=== PATIENT | female | born 1950 | race Caucasian/White ===

== ENCOUNTER → 2017-06-28 | Outpatient (CLI) | payer MEDICARE ==
[~2017-06-28] MED LIST: LEVO.125 PO; RALO60 PO; ROSU10 PO; SERT-132 PO
[2017-06-28 08:34] LABS: HEMATOCRIT 38.1 % (35.0-46.0); MEAN CELL VOLUME 94.2 FL (80.0-100.0); MEAN CORPUSCULAR HEMOGLOBIN 32.1 PG (27.0-34.0); PLATELET COUNT 236 TH/MM3 (150-450); RED BLOOD COUNT 4.05 MIL/MM3 (4.00-5.30); RED CELL DISTRIBUTION WIDTH 13.1 % (11.6-17.2); REVIEW FLAG FINAL; WHITE BLOOD COUNT 5.6 TH/MM3 (4.0-11.0)
[2017-06-28 08:40] LABS: APTT (PATIENT) 23.2 SEC (24.3-30.1); INTERNATIONAL NORMALIZED RATIO 1.1 RATIO; PROTHROMBIN TIME - PATIENT 10.8 SEC (9.8-11.6)
[2017-06-28 09:02] LABS: BICARBONATE 30.2 MEQ/L (21.0-32.0); POTASSIUM 4.4 MEQ/L (3.5-5.1)
[2017-06-28 09:42] LABS: BLOOD, URINE NEG (NEG); COMMENT (UR) CULT NOT INDICATED; CULTURE IF INDICATED CULT NOT INDICATED; GLUCOSE,URINE NEG (NEG); KETONE, URINE NEG (NEG); MUCUS URINE FEW /lpf (OCC); NITRITE,URINE NEG (NEG); PH, URINE 6.5 (5.0-8.5); SQUAMOUS EPITHELIAL CELL URINE 1 /hpf (0-5); URINE COLOR YELLOW (YELLW/STRAW)
--- NOTE | 2017-06-29 09:31 | EKG ---
Date Performed: 06/28/2017 Time Performed: 08:38:52 PTAGE: 66 years EKG: Sinus rhythm Low QRS voltages in precordial leads Borderline ECG NO PREVIOUS TRACING DOCTOR: Kirstie Doyle Interpretating Date/Time 06/29/2017 09:30:08
== END ==
LOC: CPRE 08:07
PROVIDERS: ATTEND Orthopaedic Surgery
DX: Z01.810 Encounter for preprocedural cardiovascular examination (principal); Z01.812 Encounter for preprocedural laboratory examination; M17.12 Unilateral primary osteoarthritis, left knee; M21.162 Varus deformity, not elsewhere classified, left knee; I10 Essential (primary) hypertension; M79.609 Pain in unspecified limb; R94.31 Abnormal electrocardiogram [ECG] [EKG]
CPT/HCPCS: 36415; 80048; 81001; 85027; 85610; 85730; 93005

== ENCOUNTER 2017-07-16 07:41 | Inpatient (IN) | payer MEDICARE ==
[~2017-07-16] VITALS: Ht 165.1 cm; Wt 78.4 kg
[2017-07-16] MEDS ORDERED: CHLORHEXIDINE GLUCONATE 2 % 1 PACK (2 CLOTHS) TOPICAL PRN (08:00)
[2017-07-16] MEDS: LACTATED RINGER'S 1000 ML IV PRN ×2 (08:00→10:00)
[2017-07-16] MEDS ORDERED: SODIUM CHLORID 0.9% 500 ML IV PRN (08:00)
[2017-07-16] MEDS ORDERED: METOPROLOL TARTRATE 25 MG TAB PO PRN (08:00)
[2017-07-16] MEDS ORDERED: POVIDONE IODINE 5% (ANTISEPSIS KIT) 4 APPLICATIONS EACH NARE PRN (08:00)
[2017-07-16] MEDS ORDERED: ceFAZolin 2 GM PREMIX 50 ML IV SCH (08:15)
[2017-07-16] MEDS ORDERED: CHLORHEXIDINE GLUCONATE 4% SOLN 120 ML BTL TOPICAL SCH (08:15)
[2017-07-16] MEDS ORDERED: EXPAREL PERI-ARTICULAR INJECTION (TOTAL VOL. 100 ML) P-ARTICULR SCH ×2 (10:00)
[2017-07-16] MEDS ORDERED: TRANEXAMIC ACID INJ 781 MG in SODIUM CHLORIDE 0.9% INJ 100 ML IV SCH ×2 (10:00→13:00)
[2017-07-16] MEDS ORDERED: TRANEXAMIC ACID INJ 0 MG in SODIUM CHLORIDE 0.9% INJ 100 ML IV SCH (10:00)
[2017-07-16] MEDS ORDERED: MAGNESIUM HYDROXIDE SUSP 30 ML CUP PO PRN (10:00)
--- NOTE | 2017-07-16 10:06 | HHI.FF ---
Face to Face Verification Diagnosis: (1) Status post total left knee replacement Physical Therapy Gait training Knee: Total knee, Protocol: Left, Gait training, Full weight bearing Left LE Weight Bearing: WB as tolerated Left LE Range of Motion: Active ROM (active, passive, and active assisted range of motion. Range of motion goal is 0 extension to 135 flexion.) Nursing Nursing: Dressing changes (to start on postop day 7) Dressing Changes: Daily dressing change, Coverderm/Primapore Additional Instructions Remove Steri-Strips on postop day 14. I have seen patient Karey Reyes on 07/16/17. My clinical findings support the need for the requested home health care services because: Ltd mobility - disease progression Limited ability to care for self High risk of falls I certify that my clinical findings support that this patient is homebound because: Post-op weakness Unsteady gait/balance Unsafe to leave home unassisted Phillip Marrero MD (Charles) Jul 16, 2017 10:06
[2017-07-16] MEDS ORDERED: ECASA81 PO (10:07)
[2017-07-16] MEDS ORDERED: GENTAMICIN SULFATE 80 MG/2 ML VIAL ONE (10:13)
[2017-07-16] MEDS ORDERED: ACETAMINOPHEN/HYDROcodone 325 MG/7.5 MG TAB PO PRN (10:15)
[2017-07-16] MEDS ORDERED: MORPHINE SULFATE 2 MG/ML INJ IV PUSH PRN (10:15)
[2017-07-16] MEDS ORDERED: ONDANSETRON HCL 4 MG/2 ML VIAL IVP PRN (10:15)
[2017-07-16] MEDS ORDERED: FAMOTIDINE 20 MG/2 ML VIAL ONE (10:17)
[2017-07-16] MEDS ORDERED: ACETAMINOPHEN 1000 MG/100 ML 100 ML IV ONE (10:17)
[2017-07-16] MEDS ORDERED: MIDAZOLAM HCL 2 MG/2 ML VIAL ONE (10:17)
[2017-07-16] MEDS ORDERED: BUPIVACAINE HCL PF 0.5% 30 ML VIAL ONE (10:27)
[2017-07-16] MEDS ORDERED: Post-op Orders (for Pharmacy) XX ONE (12:00)
[2017-07-16] MEDS: KETOROLAC TROMETHAMINE 30 MG/ML (IVP) VIAL IVP SCH ×3 (12:00→23:13)
--- NOTE | 2017-07-16 13:13 | PD.OP ---
Operative Report Date of Surgery: Jul 16, 2017 Preoperative Diagnosis: (1) Primary osteoarthritis of left knee Postoperative Diagnosis: (1) Primary osteoarthritis of left knee Procedure: Left total knee arthroplasty with Maggie Triathlon prosthesis (uncemented) Anesthesia: Spinal plus adductor canal block plus local with bupivacaine liposomal Surgeon: Aiden Marrero M.D. Accounts Receivable Collector(s): Cassy Hicks RN Operation and Findings: Indications and Findings: This 66-year-old woman has had left knee pain secondary to osteoarthritis over extended period of time which has been progressively worsening. Treatment is documented in the preoperative history and physical examination. Physical findings show degenerative varum with medial laxity, medial osteophytes and tenderness on motion. Radiographic findings showed loss of articular cartilage to bone on bone with medial eburnation and osteophytes. Operative findings showed severe osteoarthritis and [id number] in the medial compartment with subchondral sclerosis, large osteophytes and patellofemoral arthrosis with loss of articular cartilage and delamination of articular cartilage. The lateral compartment had degeneration as well. There was a small cyst or bursa on the anterior aspect of the patella that did not appear to be inflamed, had clear, colorless fluid and was approximately 10 mm in diameter. The prosthesis used was a Schriever Triathlon prosthesis. The femur was a size 4 cruciate retaining uncemented. The tibial baseplate was a size 4 Tritanium with a 9 mm cruciate retaining X3 polyethylene spacer. The patella was a size 35 mm asymmetric Tritanium backed. The patient was brought to the clean-air operating suite. A spinal anesthetic was administered as well as a regional anesthetic by abductor canal block. The position was supine with a small bolster under the hip on the operative side. A pneumatic tourniquet was applied to the upper thigh. The lower extremity was then prepped with alcohol, Hibiclens and ChloraPrep and draped in the usual manner with the knee draped free. An appropriate timeout procedure was carried out. An incision was made from about 3 fingerbreadths above the superior medial pole of patella down the tibial tubercle on the medial side. The incision was deepened through the subcutaneous tissue to the retinacular structures which were exposed medially and laterally. The above-noted cyst or bursa was identified and opened, essentially marsupializing. A medial retinacular incision was then made from the superior middle pole of patella down the tibial tubercle and up into the quadriceps tendon splitting it longitudinally and the medial one third. The patella was reflected. The infrapatellar fat pad was debulked. The anterior cruciate ligament was excised. Medial and lateral meniscectomies were initiated. Fenestrations were made in the distal femur and proximal tibia for intramedullary referencing guides. The distal femoral cutting guide and jig were then assembled for a 5, 8 mm cut. When this was fit position and placed cutting block was stabilized with pins. The jig was removed. The distal femoral cut was then completed with the oscillating saw. The sizing guide was then positioned in place along Whitesides line and the epicondylar axis and stabilized with pins. The femoral size was then determined as noted above. The 4-in-1 cutting block was then positioned in place. Anterior and posterior cuts were made followed by posterior and anterior chamfer cuts taking care to prevent injury to ligamentous structures. Osteophytes were then trimmed from the distal femur. A bone plug was then placed into the fenestration of the distal femur. The proximal tibia was then exposed. The medial and lateral meniscectomies were completed. The proximal tibial cutting guide was then positioned in place and stabilized with a pin for rotation. The depth of cut was then verified with a stylus off the lateral side. The cutting block was stabilized with pins. The jig was removed. The depth of cut was then verified and adjusted appropriately with the use of the spacer block. The proximal tibial cut was then made with the oscillating saw taking care to prevent injury to neurovascular and ligamentous structures. Proximal tibial bone was removed. Local anesthetic was administered with Exparel in the posterior capsule. The tibial baseplate trial was then positioned in place. After verifying the appropriate size, the base plate trial was positioned in place along with its spacer. The femoral component was then impacted into place. The alignment was checked. The tibial baseplate was then pinned in place on the tibia. Attention was directed to the patella. The patella drill guide was positioned in place for the appropriate sized patella. Patellar drilling was then carried out. The trial patella was positioned in place. The knee was taken through a range of motion which was easily 0 extension to 145. The patella trial was removed. The femoral drill holes were made. The femoral trials were removed. The tibial spacer was removed. A bone plug was placed into the proximal tibia. The tibial punch was impacted through the proximal tibial punch guide. This was all removed followed by placement of the tibial drill guide. The tibial drill holes were then made. The guide was removed. The cut ends of bone were then cleaned with pulse lavage. The tibial baseplate was then impacted into place and seated appropriately. The spacer was inserted. The the femoral component was then impacted into place and seated appropriately. The patella component was then seated with the patellar device and tightened appropriately. The knee was taken through a range of motion which was comparable to the previous range of motion with excellent stability in flexion and extension and appropriate patellofemoral tracking. The remainder of the Exparel was then injected throughout the knee as a local anesthetic. Drains were brought out the superior lateral aspect of the suprapatellar pouch. Wound closure then commenced using 0 Vicryl interrupted [id number] sutures for the capsular and fascial structures, 2-0 Vicryl interrupted simple sutures with buried knots for the subcutaneous tissues and 4- 0 Monocryl, tenuous subcuticular closure for the skin. The wound was then dressed with Steri-Strips followed by Optifoam silver impregnated dressing. Sterile soft roll with a cooling pad and Dima bandage from the base of the toes to mid thigh were then applied. Patient was then transferred from the operating room to the recovery room in satisfactory condition having tolerated procedure well. Counts are correct. Specimens: None. Estimated blood loss: 100 mL Phillip Marrero MD (Charles) Jul 16, 2017 13:13
--- NOTE | 2017-07-16 13:16 | HHI.PR ---
Immediate Post Op Note Procedure Date: Jul 16, 2017 Pre Op Diagnosis: (1) Primary osteoarthritis of left knee Post Op Diagnosis: (1) Primary osteoarthritis of left knee Surgeon: Aiden Marrero M.D. Wardrobe Stylist(s): Cassy Hicks RN Procedure: Left total knee arthroplasty with Striker Triathlon prosthesis (uncemented) Findings: There was severe osteoarthritis in the medial compartment and patellofemoral compartment as noted in the dictated operative report. Complications: None Specimen(s) removed: None Estimated blood loss: 100 mL Anesthesia: General, Regional Block (adductor canal block), Local (bupivacaine liposomal) Drains: Hemovac (2) IVF Patient to: PACU Patient Condition: Good Implant/Devices: SEE IMPLANT LOG (if applicable) Date/Time of Procedure: SEE SURGICAL CARE RECORD Phillip Marrero MD (Charles) Jul 16, 2017 13:16
[2017-07-16] MEDS ORDERED: HYDR-3580 PO (13:18)
[2017-07-16] MEDS ORDERED: DO NOT ADM ANY ANTICOAGULANT DRUGS PRN (13:24)
[2017-07-16] MEDS: LACTATED RINGER'S 1000 ML INJ 1,000 ML IV SCH ×2 (13:39→22:45)
--- NOTE | 2017-07-16 14:18 | RADRPT ---
EXAM DATE/TIME: 07/16/2017 13:41 [facility] COMPARISON: No previous studies available for comparison. INDICATIONS : Post-op total left knee arthroplasty. MEDICAL HISTORY : Hypothyroidism. SURGICAL HISTORY : None. ENCOUNTER: Initial ACUITY: 1 day PAIN SCORE: 0/10 LOCATION: Left Knee. FINDINGS: Total knee arthroplasty is in place. The femoral, tibial, and patellar components appear intact. Th ere are no signs of loosening or fracture. CONCLUSION: Intact total knee arthroplasty for technique. OlivaKarine Hickman MD on July 16, 2017 at 14:01 Board Certified Radiologist. This report was verified electronically.
[2017-07-16 15:30] VITALS: BP 139/69; PULSE 80; RESP 16; TEMP 97.7; O2SAT 96
--- NOTE | 2017-07-16 16:25 | PD.CONS ---
[facility] Request[facility] By ODALIS BAE MD Reason for Consult Medical management Primary Care Physician Zayra Zheng MD Diagnoses: History of Present Illness Patient is a 66-year-old female. With severe osteoarthritis of her left knee who underwent a left total knee arthroplasty today by Dr. Bae. Patient tolerated the procedure well. We have now been asked to help regarding her medical management here in the hospital. We'll get a.m. labs and follow for any other issues that may arise Review of Systems Constitutional: DENIES: Diaphoretic episodes, Fatigue, Fever, Weight gain, Weight loss, Chills, Dizziness, Change in appetite Endocrine: DENIES: Abnorml menstrual pattern, Heat/cold intolerance, Polydipsia Eyes: DENIES: Blurred vision, Diplopia, Eye inflammation, Eye pain, Vision loss , Photosensitivity Ears, nose, mouth, throat: DENIES: Tinnitus, Hearing loss, Vertigo, Nasal discharge, Oral lesions, Throat pain Respiratory: DENIES: Apneas, Cough, Snoring, Wheezing, Hemoptysis, Sputum production, Shortness of breath Cardiovascular: DENIES: Chest pain, Palpitations, Syncope, Dyspnea on Exertion , PND, Lower Extremity Edema Gastrointestinal: DENIES: Abdominal pain, Black stools, Bloody stools, Constipation, Diarrhea Genitourinary: DENIES: Abnormal vaginal bleeding, Dysmenorrhea, Dyspareunia, Vaginal discharge Musculoskeletal: COMPLAINS OF: Joint pain, DENIES: Muscle aches, Stiffness, Joint Swelling, Back pain, Neck pain Integumentary: DENIES: Abnormal pigmentation, Pruritus, Rash, Nail changes, Breast masses Hematologic/lymphatic: DENIES: Bruising, Lymphadenopathy Immunologic/allergic: DENIES: Eczema, Urticaria Neurologic: DENIES: Abnormal gait, Headache, Localized weakness Psychiatric: DENIES: Anxiety, Confusion, Mood changes, Depression Except as stated in HPI: all other systems reviewed are Neg Past Family Social History Allergies: Coded Allergies: Sulfa (Sulfonamide Antibiotics) (Verified Allergy, Severe, Anaphylaxis, 07/16/17) Past Medical History Hypothyroidism Osteoporosis Seasonal allergies Hypothyroidism Osteoarthritis Hyperlipidemia Past Surgical History Tonsillectomy adenoidectomy parotidectomy Reported Medications Reported Meds & Active Scripts Active Hydrocodone-Acetamin 7.5-325 (Hydrocodone/Acetaminophen) 7.5 Mg-325 Mg Tablet 1 Tab PO Q4H PRN Reported Sertraline (Sertraline HCl) 50 Mg Tab 75 Mg PO DAILY Evista (Raloxifene HCl) 60 Mg Tab 60 Mg PO DAILY Synthroid (Levothyroxine Sodium) 125 Mcg Tab 125 Mcg PO DAILY Crestor (Rosuvastatin Calcium) 10 Mg Tab 10 Mg PO DAILY Active Ordered Medications Current Medications Lactated Ringer's 1,000 ml @ 30 mls/hr Q24H PRN IV SEE LABEL COMMENTS Last administered on 07/16/17at 10:00; Start 07/16/17 at 08:00; Stop 07/19/17 at 07:59 Sodium Chloride 500 ml @ 30 mls/hr [id number] PRN IV SEE LABEL COMMENTS; Start 07/16/17 at 08:00; Stop 07/19/17 at 07:59 Metoprolol Tartrate (Lopressor) 25 mg FINAL FINISHER FORGING DIES PRN PO SEE LABEL COMMENTS; Start 07/16/17 at 08:00; Stop 07/19/17 at 07:59 Povidone Iodine (Betadine 5% Antisepsis Kit) 1 applic FINAL FINISHER FORGING DIES PRN EACH NARE SEE LABEL COMMENTS Last administered on 07/16/17at 08:15; Start 07/16/17 at 08:00; Stop 07/19/17 at 07:59 Chlorhexidine Gluconate (Chlorhexidine 2% Cloth) 3 pack FINAL FINISHER FORGING DIES PRN TOPICAL SEE LABEL COMMENTS Last administered on 07/16/17at 07:50; Start 07/16/17 at 08:00; Stop 07/19/17 at 07:59 Chlorhexidine Gluconate (Hibiclens 4% Top Soln) 1 applic FINAL FINISHER FORGING DIES TOPICAL Last administered on 07/16/17at 08:00; Start 07/16/17 at 08:15; Stop 07/17/17 at 08:14 Cefazolin Sodium/ Dextrose 50 ml @ 100 mls/hr FINAL FINISHER FORGING DIES IV Last administered on 07/16/17at 10:59; Start 07/16/17 at 08:15; Stop 07/19/17 at 08:14 Tranexamic Acid 781 mg/Sodium Chloride 107.81 ml @ 200 mls/ hr FINAL FINISHER FORGING DIES IV Last administered on 07/16/17at 10:53; Start 07/16/17 at 10:00; Stop 07/16/17 at 16: 00; Status DC Tranexamic Acid 781 mg/Sodium Chloride 107.81 ml @ 200 mls/ hr FINAL FINISHER FORGING DIES IV Last administered on 07/16/17at 13:42; Start 07/16/17 at 13:00; Stop 07/16/17 at 19: 00 Bupivacaine Liposome 20 ml/ Sodium Chloride 100 ml @ 200 mls/hr FINAL FINISHER FORGING DIES P- ARTICULR Last administered on 07/16/17at 11:16; Start 07/16/17 at 10:00; Stop 07/16 at 16:00; Status DC Lactated Ringer's 1,000 ml @ 80 mls/hr [id number] IV Last administered on at 13:39; Start 07/16/17 at 10:15 Cefazolin Sodium 1000 mg/Sodium Chloride 100 ml @ 200 mls/hr Q6H IV ; Start 07/16/17 at 17:00; Stop 07/17/17 at 05:29 Miscellaneous Information (Post-op Orders (for Pharmacy)) STAT ONCE XX ; Start 07/16/17 at 12:00; Stop 07/16/17 at 12:01; Status DC Morphine Sulfate (Morphine Inj) 4 mg Q3H PRN IV PUSH BREAKTHROUGH PAIN; Start 07/16/17 at 10:15 Acetaminophen/ Hydrocodone Bitart ([place] 7.5-325 Mg) 1 tab Q4H PRN PO PAIN LESS THAN 5 ON SCALE; Start 07/16/17 at 10:15 Acetaminophen/ Hydrocodone Bitart ([place] 7.5-325 Mg) 2 tab Q4H PRN PO PAIN SCALE 5 TO 10; Start 07/16/17 at 10:15 Ketorolac Tromethamine (Toradol Inj) 15 mg Q6H IVP ; Start 07/16/17 at 12:00; Stop 07/18/17 at 06:01 Tranexamic Acid / Sodium Chloride 100 ml @ 200 mls/hr UNSCH IV ; Start 07/16/17 at 10:00; Stop 07/16/17 at 10:29; Status UNV Ondansetron HCl (Zofran Inj) 4 mg Q6H PRN IVP NAUSEA OR VOMITING; Start at 10:15 Docusate Sodium (Colace) 100 mg BID PO ; Start 07/17/17 at 21:00 Zolpidem Tartrate (Ambien) 5 mg HS PRN PO SLEEP; Start 07/16/17 at 21:00 Magnesium Hydroxide (Milk Of Magnradha Liq) 30 ml DAILY PRN PO CONSTIPATION; Start 07/16/17 at 10:00 Aspirin (Ecotrin Ec) 81 mg BID PO ; Start 07/17/17 at 12:30 Levothyroxine Sodium (Synthroid) 125 mcg DAILY@0600 PO ; Start 07/17/17 at 06:00 Raloxifene HCl (Evista) 60 mg DAILY PO ; Start 07/17/17 at 09:00 Sertraline HCl (Zoloft) 75 mg DAILY PO ; Start 07/17/17 at 09:00 Atorvastatin Calcium (Lipitor) 20 mg DAILY PO ; Start 07/17/17 at 09:00 Gentamicin Sulfate (Gentamicin Inj) 240 mg STK-MED ONCE .ROUTE Last administered on 07/16/17at 11:16; Start 07/16/17 at 10:13; Stop 07/16/17 at 10:14; Status DC Famotidine (Pepcid Inj) 20 mg STK-MED ONCE .ROUTE ; Start 07/16/17 at 10:17; Stop 07/16/17 at 10:18; Status DC Acetaminophen 100 ml @ As Directed STK-MED ONCE IV ; Start 07/16/17 at 10:17; Stop 07/16/17 at 10:18; Status DC Midazolam HCl (Versed Inj) 2 mg STK-MED ONCE .ROUTE ; Start 07/16/17 at 10:17; Stop 07/16/17 at 10:18; Status DC Fentanyl Citrate (fentaNYL INJ) 400 mcg STK-MED ONCE .ROUTE ; Start 07/16/17 at 10:18; Stop 07/16/17 at 10:19; Status DC Bupivacaine HCl (Marcaine Pf 0.5% Inj) 30 ml STK-MED ONCE .ROUTE ; Start at 10:27; Stop 07/16/17 at 10:28; Status DC Miscellaneous Information ALL NURSING DEPARTME... 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 SKIN: No rashes, ecchymoses or lesions. Cool and dry. HEAD: Atraumatic. Normocephalic. No temporal or scalp tenderness. EYES: Pupils equal round and reactive. Extraocular motions intact. No scleral icterus. No injection or drainage. ENT: Nose without bleeding, purulent drainage or septal hematoma. Throat without erythema, tonsillar hypertrophy or exudate. Uvula midline. Airway patent. Tongue is midline NECK: Trachea midline. No JVD or lymphadenopathy. Supple, nontender, no meningeal signs. CARDIOVASCULAR: Regular rate and rhythm without murmurs, gallops, or rubs. S1 and S2 no S3 or S4 no heave or thrill or rub or gallop RESPIRATORY: Clear to auscultation. Breath sounds equal bilaterally. No wheezes , rales, or rhonchi. GASTROINTESTINAL: Abdomen soft, non-tender, nondistended. No hepato-splenomegaly , or palpable masses. No guarding. MUSCULOSKELETAL: Extremities without clubbing, cyanosis, or edema. No joint tenderness, effusion, or edema noted. No calf tenderness. Negative Homans sign bilaterally. Left knee is dressed NEUROLOGICAL: Awake and alert. Cranial nerves II through XII intact. Motor and sensory grossly within normal limits. Five out of 5 muscle strength in all muscle groups. Normal speech. Insight and judgment is good Mood and behaviors appropriate Imaging Last Impressions Knee X-Ray 07/16/17 0959 Signed Impressions: Service Date/Time: Sunday, July 16, 2017 13:41 - CONCLUSION: Intact total knee arthroplasty for technique. Darlene Hickman MD Assessment and Plan Assessment and Plan Status post left total knee arthroplasty for severe osteoarthritis Family history of breast cancer on Evista Hyperlipidemia on rosuvastatin Hypothyroidism on Synthroid Osteoarthritis on pain control Continue physical therapy and occupational therapy DVT prophylaxis per orthopedic surgery A.m. labs Activity as tolerated Code Status Full code Discussed Condition With Patient and RN and family Arcenio Aguiar DO Jul 16, 2017 16:25
[2017-07-16] MEDS: ACETAMINOPHEN/HYDROcodone 325 MG/7.5 MG TAB PO PRN ×2 (18:59→23:13)
[2017-07-16 20:00] VITALS: BP 116/59; PULSE 96; RESP 18; TEMP 98.2; O2SAT 95
[2017-07-16] MEDS ORDERED: ZOLPIDEM TARTRATE 5 MG TAB PO PRN (21:00)
[2017-07-17] VITALS: BP 117/59; PULSE 81; RESP 18; TEMP 97.4; O2SAT 96
[2017-07-17 04:00] VITALS: BP 138/70; PULSE 81; RESP 18; TEMP 97; O2SAT 98
[2017-07-17 05:47] LABS: AUTOMATED NEUTROPHIL # 10.9 TH/MM3 (1.8-7.7); BASOPHIL % 0.3 % (0.0-2.0); EOSINOPHIL % 0.1 % (0.0-4.0); HEMATOCRIT 32.6 % (35.0-46.0); HEMOGLOBIN 10.7 GM/DL (11.6-15.3); LYMPH % 10.2 % (9.0-44.0); LYMPHOCYTE # 1.3 TH/MM3 (1.0-4.8); MEAN CELL VOLUME 94.5 FL (80.0-100.0); MEAN CORPUSCULAR HEMOGLOBIN 31.1 PG (27.0-34.0); MEAN CORPUSCULAR HGB CONC 32.9 % (32.0-36.0); MEAN PLATELET VOLUME 7.4 FL (7.0-11.0); MONO % 7.1 % (0.0-8.0); MONOCYTE # 0.9 TH/MM3 (0-0.9); NEUT % 82.3 % (16.0-70.0); PLATELET COUNT 227 TH/MM3 (150-450); RED BLOOD COUNT 3.45 MIL/MM3 (4.00-5.30); RED CELL DISTRIBUTION WIDTH 13.1 % (11.6-17.2); WHITE BLOOD COUNT 13.2 TH/MM3 (4.0-11.0)
[2017-07-17] MEDS: KETOROLAC TROMETHAMINE 30 MG/ML (IVP) VIAL IVP SCH ×2 (06:00→13:31)
[2017-07-17] MEDS ORDERED: LEVOTHYROXINE SODIUM 125 MCG TAB PO SCH (06:00)
[2017-07-17 06:07] LABS: ALBUMIN 2.8 GM/DL (3.4-5.0); BICARBONATE 29.7 MEQ/L (21.0-32.0); BLOOD UREA NITROGEN 18 MG/DL (7-18); CALCIUM 8.7 MG/DL (8.5-10.1); CHLORIDE 109 MEQ/L (98-107); CREATININE 0.58 MG/DL (0.50-1.00); GLOMERULAR FILTRATION RATE 103 ML/MIN (>89); GLUCOSE,RANDOM 116 MG/DL (74-106); MAGNESIUM 1.9 MG/DL (1.5-2.5); SODIUM (NA) 143 MEQ/L (136-145)
[2017-07-17 06:09] LABS: ALT (GPT) 26 U/L (10-53); AST (GOT) 19 U/L (15-37); PHOSPHORUS 3.2 MG/DL (2.5-4.9)
[2017-07-17 06:18] LABS: ALKALINE PHOSPHATASE 49 U/L (45-117); FREE T4 1.07 NG/DL (0.76-1.46); TOTAL BILIRUBIN ADULT 0.3 MG/DL (0.2-1.0); TOTAL PROTEIN 5.9 GM/DL (6.4-8.2)
--- NOTE | 2017-07-17 07:50 | PD.ORT.PN ---
Subjective Post Op Day #: 1 Subjective Remarks She is doing well. She has minimal complaints related to the knee. She did well with physical therapy. Range of Motion -3 to 90. Distance Walked 15 feet, twice with physical therapy. Objective Vitals Vital Signs Date Time Temp Pulse Resp B/P (MAP) Pulse Ox O2 Delivery O2 Flow Rate FiO2 07/17/17 04:00 97.0 81 18 138/70 (92) 98 07/17/17 00:00 97.4 81 18 117/59 (78) 96 07/16/17 20:00 98.2 96 18 116/59 (78) 95 07/16/17 15:30 97.7 80 16 139/69 (92) 96 07/16/17 14:15 97.9 69 16 150/67 (94) 100 Room Air 07/16/17 14:00 68 19 134/61 (85) 100 Nasal Cannula 2 07/16/17 13:45 65 15 158/70 (99) 100 Nasal Cannula 3 07/16/17 13:27 97.9 66 12 130/61 (84) 100 Nasal Cannula 3 07/16/17 08:11 97.9 76 20 150/70 (96) 96 I/O 07/16/17 07/16/17 07/16/17 07/17/17 07/17/17 07/17/17 07:00 15:00 23:00 07:00 15:00 23:00 Intake Total 1600 ml 300 ml Output Total 150 ml 485 ml 75 ml Balance 1450 ml -185 ml -75 ml Intake Oral 300 ml IV Total 1600 ml Output Urine Total 350 ml Drainage Total 50 ml 135 ml 75 ml Estimated Blood Loss 100 ml # Voids 1 # Bowel Movements 0 Result Diagram: 07/17/17 0448 07/17/17 0448 Imaging Last 24 hours Impressions Knee X-Ray 07/16/17 0959 Signed Impressions: Service Date/Time: Sunday, July 16, 2017 13:41 - CONCLUSION: Intact total knee arthroplasty for technique. Darlene Hickman MD Objective Remarks She is resting comfortably, supine in bed, in the continuous passive motion device. The dressing is dry and intact. Her neurovascular status is intact. Assessment & Plan Ortho Post Op Day #: 1 Problem List: (1) Primary osteoarthritis of left knee ICD Codes: M17.12 - Unilateral primary osteoarthritis, left knee Status: Resolved (2) Status post total left knee replacement ICD Codes: Z96.652 - Presence of left artificial knee joint Plan: Continue postop care and PT. Assessment and Plan Condition: Good. Orthopedically stable. DVT prophylaxis: TEDs, aspirin, sequentials. Discharge plans: Home with home health care. An appointment was scheduled through the office. Prescriptions: [place] 7.5/325. Phillip Marrero MD (Charles) Jul 17, 2017 07:50
[2017-07-17 08:00] VITALS: BP 143/74; PULSE 74; RESP 18; TEMP 97.3; O2SAT 98
--- NOTE | 2017-07-17 08:29 | HHI.DS ---
Discharge Summary Admission Date Jul 16, 2017 at 10:02 Discharge Date: Jul 17, 2017 Admitting Diagnosis Primary osteoarthritis, left knee. Diagnosis: (1) Primary osteoarthritis of left knee ICD Codes: M17.12 - Unilateral primary osteoarthritis, left knee Status: Resolved (2) Status post total left knee replacement ICD Codes: Z96.652 - Presence of left artificial knee joint Procedures Left total knee arthroplasty with [place] Triathlon prosthesis (uncemented) on . Brief History This is a 66 year old female patient who has had long-standing pain in her left knee which is nonresponsive to conservative measures as detailed in the history and physical examination. Physical findings show genu varum with tenderness and crepitation in the medial compartment along with palpable osteophytes. X-rays show severe osteoarthritis particularly in the medial compartment eburnation and osteophytes. CBC/BMP: 07/17/17 0448 07/17/17 0448 Significant Findings Laboratory Tests Test 07/17/17 04:48 White Blood Count 13.2 TH/MM3 (4.0-11.0) Red Blood Count 3.45 MIL/MM3 (4.00-5.30) Hemoglobin 10.7 GM/DL (11.6-15.3) Hematocrit 32.6 % (35.0-46.0) Neutrophils (%) (Auto) 82.3 % (16.0-70.0) Neutrophils # (Auto) 10.9 TH/MM3 (1.8-7.7) Random Glucose 116 MG/DL (74-106) Total Protein 5.9 GM/DL (6.4-8.2) Albumin 2.8 GM/DL (3.4-5.0) Chloride Level 109 MEQ/L (98-107) Anion Gap 4 MEQ/L (5-15) PE at Discharge She is resting comfortably, supine in bed, in the continuous passive motion device. The dressing is dry and intact. Her neurovascular status is intact. Hospital Course The patient was admitted on 07/16/2017 and had the above-noted left total knee arthroplasty carried out. She tolerated procedure well. She received prophylactic antibiotics in the form of Ancef preoperatively and subsequently postoperative protocols. She also received tranexamic acid hemostasis. DVT prophylaxis initiated with MARLO stockings, sequentials and aspirin. Physical therapy was initiated on the day of surgery. She tolerated this well and walks well. Details are within physical therapy. Discharge home with home health care. Arrangements were made preoperatively. Pt Condition on Discharge: Good Discharge Disposition: Disch w/ Home Health Serv Discharge Instructions Diet Instructions: As Tolerated, No Restrictions Activities You Can Perform: Full Weight Bearing, Shower Only-No Bath Activities to Avoid: Lifting/Bending, Strenuous Activity, Bathing, Driving Follow up Referrals: Orthopedics with Phillip Marrero MD ([facility]) New Medications: Aspirin DR (Aspirin DR) 81 Mg Tabdr 81 MG PO BID for Prevent Blood Clot for 30 Days, #60 TAB Hydrocodone/Acetaminophen (Hydrocodone-Acetamin 7.5-325) 7.5 Mg-325 Mg Tablet 1 TAB PO Q4H PRN for PAIN SCALE 1 TO 10, #50 TAB Continued Medications: Levothyroxine (Synthroid) 125 Mcg Tab 125 MCG PO DAILY for Thyroid, #30 TAB 0 Refills Raloxifene (Evista) 60 Mg Tab 60 MG PO DAILY for Chemotherapy Management, #30 TAB 0 Refills Rosuvastatin (Crestor) 10 Mg Tab 10 MG PO DAILY for Cholesterol Management, #30 TAB 0 Refills Sertraline (Sertraline) 50 Mg Tab 75 MG PO DAILY, #30 TAB 0 Refills Phillip Marrero MD ([facility]) Jul 17, 2017 08:29
[2017-07-17] MEDS ORDERED: ATORVASTATIN 20 MG TAB PO SCH (09:00)
[2017-07-17] MEDS ORDERED: RALOXIFENE HCL 60 MG TAB PO SCH (09:00)
[2017-07-17] MEDS ORDERED: SERTRALINE HCL 50 MG TAB PO SCH (09:00)
[2017-07-17] MEDS: ACETAMINOPHEN/HYDROcodone 325 MG/7.5 MG TAB PO PRN ×2 (09:11→13:30)
--- NOTE | 2017-07-17 11:33 | HHI.PR ---
Subjective Remarks Follow-up for medical management with a left total knee arthroplasty Patient no complaints. She stated that she was told that she can go home today. Denied any nausea/vomiting. She stated that she is doing very well. Patient stated that she was told she can go home today. She has no other complaints. Objective Vitals Vital Signs Date Time Temp Pulse Resp B/P (MAP) Pulse Ox O2 Delivery O2 Flow Rate FiO2 07/17/17 08:00 97.3 74 18 143/74 (97) 98 07/17/17 04:00 97.0 81 18 138/70 (92) 98 07/17/17 00:00 97.4 81 18 117/59 (78) 96 07/16/17 20:00 98.2 96 18 116/59 (78) 95 07/16/17 15:30 97.7 80 16 139/69 (92) 96 07/16/17 14:15 97.9 69 16 150/67 (94) 100 Room Air 07/16/17 14:00 68 19 134/61 (85) 100 Nasal Cannula 2 07/16/17 13:45 65 15 158/70 (99) 100 Nasal Cannula 3 07/16/17 13:27 97.9 66 12 130/61 (84) 100 Nasal Cannula 3 I/O 07/16/17 07/16/17 07/16/17 07/17/17 07/17/17 07/17/17 07:00 15:00 23:00 07:00 15:00 23:00 Intake Total 1600 ml 300 ml Output Total 150 ml 485 ml 75 ml Balance 1450 ml -185 ml -75 ml Intake Oral 300 ml IV Total 1600 ml Output Urine Total 350 ml Drainage Total 50 ml 135 ml 75 ml Estimated Blood Loss 100 ml # Voids 1 # Bowel Movements 0 Result Diagram: 07/17/17 0448 07/17/178 Objective Remarks GENERAL: in NAD CARDIOVASCULAR: Regular rate and rhythm without murmurs, gallops, or rubs. RESPIRATORY: Breath sounds equal bilaterally. No accessory muscle use. GASTROINTESTINAL: Abdomen soft, non-tender, nondistended. MUSCULOSKELETAL: No cyanosis, or edema. Medications and IVs Current Medications Lactated Ringer's 1,000 ml @ 30 mls/hr Q24H PRN IV SEE LABEL COMMENTS Last administered on 07/16/17at 10:00; Start 07/16/17 at 08:00; Stop 07/19/17 at 07:59 Sodium Chloride 500 ml @ 30 mls/hr [id number] PRN IV SEE LABEL COMMENTS; Start 07/16/17 at 08:00; Stop 07/19/17 at 07:59 Metoprolol Tartrate (Lopressor) 25 mg [employer] PRN PO SEE LABEL COMMENTS; Start 07/16/17 at 08:00; Stop 07/19/17 at 07:59 Povidone Iodine (Betadine 5% Antisepsis Kit) 1 applic [employer] PRN EACH NARE SEE LABEL COMMENTS Last administered on 07/16/17at 08:15; Start 07/16/17 at 08:00; Stop 07/19/17 at 07:59 Chlorhexidine Gluconate (Chlorhexidine 2% Cloth) 3 pack [employer] PRN TOPICAL SEE LABEL COMMENTS Last administered on 07/16/17at 07:50; Start 07/16/17 at 08:00; Stop 07/19/17 at 07:59 Chlorhexidine Gluconate (Hibiclens 4% Top Soln) 1 applic [employer] TOPICAL Last administered on 07/16/17at 08:00; Start 07/16/17 at 08:15; Stop 07/17/17 at 08:14; Status DC Cefazolin Sodium/ Dextrose 50 ml @ 100 mls/hr [employer] IV Last administered on 07/16/17at 10:59; Start 07/16/17 at 08:15; Stop 07/19/17 at 08:14 Tranexamic Acid 781 mg/Sodium Chloride 107.81 ml @ 200 mls/ hr [employer] IV Last administered on 07/16/17at 10:53; Start 07/16/17 at 10:00; Stop 07/16/17 at 16: 00; Status DC Tranexamic Acid 781 mg/Sodium Chloride 107.81 ml @ 200 mls/ hr [employer] IV Last administered on 07/16/17at 13:42; Start 07/16/17 at 13:00; Stop 07/16/17 at 19: 00; Status DC Bupivacaine Liposome 20 ml/ Sodium Chloride 100 ml @ 200 mls/hr [employer] P- ARTICULR Last administered on 07/16/17at 11:16; Start 07/16/17 at 10:00; Stop 07/16 at 16:00; Status DC Lactated Ringer's 1,000 ml @ 80 mls/hr [id number] IV Last administered on at 13:39; Start 07/16/17 at 10:15 Cefazolin Sodium 1000 mg/Sodium Chloride 100 ml @ 200 mls/hr Q6H IV Last administered on 07/17/17at 05:00; Start 07/16/17 at 17:00; Stop 07/17/17 at 05:29; Status DC Miscellaneous Information (Post-op Orders (for Pharmacy)) STAT ONCE XX ; Start 07/16/17 at 12:00; Stop 07/16/17 at 12:01; Status DC Morphine Sulfate (Morphine Inj) 4 mg Q3H PRN IV PUSH BREAKTHROUGH PAIN; Start 07/16/17 at 10:15 Acetaminophen/ Hydrocodone Bitart ([place] 7.5-325 Mg) 1 tab Q4H PRN PO PAIN LESS THAN 5 ON SCALE Last administered on 07/17/17at 09:11; Start 07/16/17 at 10:15 Acetaminophen/ Hydrocodone Bitart ([place] 7.5-325 Mg) 2 tab Q4H PRN PO PAIN SCALE 5 TO 10; Start 07/16/17 at 10:15 Ketorolac Tromethamine (Toradol Inj) 15 mg Q6H IVP Last administered on at 06:00; Start 07/16/17 at 12:00; Stop 07/18/17 at 06:01 Tranexamic Acid / Sodium Chloride 100 ml @ 200 mls/hr UNSCH IV ; Start 07/16/17 at 10:00; Stop 07/16/17 at 10:29; Status UNV Ondansetron HCl (Zofran Inj) 4 mg Q6H PRN IVP NAUSEA OR VOMITING; Start at 10:15 Docusate Sodium (Colace) 100 mg BID PO ; Start 07/17/17 at 21:00 Zolpidem Tartrate (Ambien) 5 mg HS PRN PO SLEEP Last administered on 07/16/17at 23:53; Start 07/16/17 at 21:00 Magnesium Hydroxide (Milk Of Magnesia Liq) 30 ml DAILY PRN PO CONSTIPATION; Start 07/16/17 at 10:00 Aspirin (Ecotrin Ec) 81 mg BID PO ; Start 07/17/17 at 12:30 Levothyroxine Sodium (Synthroid) 125 mcg DAILY@0600 PO Last administered on 07/17at 06:00; Start 07/17/17 at 06:00 Raloxifene HCl (Evista) 60 mg DAILY PO Last administered on 07/17/17at 09:10; Start 07/17/17 at 09:00 Sertraline HCl (Zoloft) 75 mg DAILY PO Last administered on 07/17/17at 09:10; Start 07/17/17 at 09:00 Atorvastatin Calcium (Lipitor) 20 mg DAILY PO Last administered on 07/17/17at 09: 10; Start 07/17/17 at 09:00 Gentamicin Sulfate (Gentamicin Inj) 240 mg STK-MED ONCE .ROUTE Last administered on 07/16/17at 11:16; Start 07/16/17 at 10:13; Stop 07/16/17 at 10:14; Status DC Famotidine (Pepcid Inj) 20 mg STK-MED ONCE .ROUTE ; Start 07/16/17 at 10:17; Stop 07/16/17 at 10:18; Status DC Acetaminophen 100 ml @ As Directed STK-MED ONCE IV ; Start 07/16/17 at 10:17; Stop 07/16/17 at 10:18; Status DC Midazolam HCl (Versed Inj) 2 mg STK-MED ONCE .ROUTE ; Start 07/16/17 at 10:17; Stop 07/16/17 at 10:18; Status DC Fentanyl Citrate (fentaNYL INJ) 400 mcg STK-MED ONCE .ROUTE ; Start 07/16/17 at 10:18; Stop 07/16/17 at 10:19; Status DC Bupivacaine HCl (Marcaine Pf 0.5% Inj) 30 ml STK-MED ONCE .ROUTE ; Start at 10:27; Stop 07/16/17 at 10:28; Status DC Miscellaneous Information ALL NURSING DEPARTME... UNSCH PRN .XX SEE LABEL COMMENTS; Start 07/16/17 at 13:24; Stop 07/17/17 at 13:23 A/P Assessment and Plan CC-year-old female with severe left knee osteoarthritis who presented with elective surgery Severe left knee osteoarthritis -Status post left total knee arthroplasty for severe osteoarthritis on 1/2 -Management per orthopedic surgeon. Hyperlipidemia/hypothyroidism -Continue with home medication. DVT prophylaxis per orthopedic surgery Discharge Planning Patient medically clear for discharge. Alia Jameson MD Jul 17, 2017 11:33
[2017-07-17 12:00] VITALS: BP 93/52; PULSE 80; RESP 17; TEMP 97.9; O2SAT 97
[2017-07-17] MEDS ORDERED: ASPIRIN EC 81 MG TABEC PO SCH (12:30)
[2017-07-17 16:00] VITALS: BP 104/57; PULSE 75; RESP 18; TEMP 97.6; O2SAT 98
[2017-07-17 16:36] LABS: HEMOGLOBIN A1C 6.1 % (4.3-6.0)
[2017-07-17] MEDS ORDERED: DOCUSATE SODIUM 100 MG CAP PO SCH (21:00)
== END 2017-07-17 17:22 | disposition home health service (06) | DRG 470 ==
LOC: HSDC 07:41 → EDUNIT# 10:00 → EDSTATUS 10:00 → HSDI 10:02 → N06B 14:48
PROVIDERS: ADMIT Orthopaedic Surgery; ATTEND Orthopaedic Surgery
PROC: 3E0T3BZ Introduction of Anesthetic Agent into Peripheral Nerves and Plexi, Percutaneous Approach (ICD-10-PCS; 2017-07-16)
PROC: 0SRD0JA Replacement of Left Knee Joint with Synthetic Substitute, Uncemented, Open Approach (ICD-10-PCS; principal; 2017-07-16 10:22)
DX: M17.12 Unilateral primary osteoarthritis, left knee (principal); E03.9 Hypothyroidism, unspecified; M21.162 Varus deformity, not elsewhere classified, left knee; M81.0 Age-related osteoporosis without current pathological fracture; E78.5 Hyperlipidemia, unspecified; Z80.3 Family history of malignant neoplasm of breast
CPT/HCPCS: 73560; 80053; 83036; 83735; 84100; 84439; 84443; 85025; 86850; 86900; 86901; 94150; C1776; C9290; J0131; J0690; J1580; J1885; J2250; J3010; J7120